=== PATIENT | male | born 1955 | race Caucasian/White ===

== ENCOUNTER 2025-06-12 08:47 | Outpatient (CLI) | payer MEDICARE, OTHER ==
[2025-06-12 09:22] LABS: Estimated GFR - POC 73.0
== END 2025-06-12 08:48 | disposition home or self-care (01) ==
LOC: SCSMRI 08:47
PROVIDERS: ATTEND Physician Assistant Medical
DX: R10.9 Unspecified abdominal pain (principal); R93.89 Abnormal findings on diagnostic imaging of other specified body structures; N28.1 Cyst of kidney, acquired; K86.89 Other specified diseases of pancreas
CPT/HCPCS: 36415; 74183; 76376; 82565